=== PATIENT | female | born 1995 | race Caucasian/White ===

== ENCOUNTER 2018-11-10 19:26 | Observation (INO) ==
[2018-11-10] MEDS ORDERED: SODIUM CHLORIDE 0.9% 500 ML IV SCH (19:45)
[2018-11-10 19:46] LABS: Basophils # (auto) 0.01 K/uL (0-0.2); Basophils % (auto) 0.2 %; Eosinophils # (auto) 0.06 K/uL (0-0.5); Eosinophils % (auto) 1.1 %; Hematocrit (blood only) 37.2 % (37-47); Immature Granulocytes # (auto) 0.01 K/uL (0.00-0.02); Immature Granulocytes % (auto) 0.2 %; Lymphocytes # (auto) 1.84 K/uL (1.2-3.4); Lymphocytes % (auto) 34.8 %; Mean Corpuscular Hemoglobin 31.8 pg (25-34); Mean Corpuscular Hgb Conc 34.9 g/dL (32-36); Mean Platelet Volume 9.5 fL (7.4-10.4); Monocytes # (auto) 0.49 K/uL (0.11-0.59); Monocytes % (auto) 9.3 %; Neutrophils # (auto) 2.88 K/uL (1.4-6.5); Neutrophils % (auto) 54.4 %; Platelet Count 258 K/uL (130-400); RDW Coefficient of Variation 13.2 % (11.5-14.5); Red Blood Count 4.09 M/uL (4.2-5.4); White Blood Count 5.29 K/uL (4.8-10.8)
[2018-11-10 20:04] LABS: Alanine Aminotransferase 21 U/L (12-78); Albumin Level 3.7 gm/dl (3.4-5.0); Aspartate Aminotransferase 19 U/L (15-37); Blood Urea Nitrogen 7 mg/dl (7-18); Carbon Dioxide 26 mmol/L (21-32); Chloride 109 mmol/L (98-107); Creatinine Clr Calc Pharmacy 128.1 ml/min; Est GFR (African American) > 150.0; Est GFR (Non-African American) 130.3; Glucose 81 mg/dl (70-99); Magnesium 2.1 mg/dl (1.8-2.4); Potassium 3.2 mmol/L (3.5-5.1); Sodium 142 mmol/L (136-145)
[2018-11-10 20:12] LABS: Acetaminophen < 2 ug/ml (10-30); Salicylate 3.1 mg/dl (2.8-20)
[2018-11-10 20:15] LABS: Albumin Globulin Ratio 1.1 (0.9-2); Alkaline Phosphatase 76 U/L (45-117); Bilirubin,Total 0.4 mg/dl (0.2-1); Creatine Kinase 131 U/L (26-192); Globulin 3.5 gm/dl (2.5-4.0); Thyroid Stimulating Hormone 0.591 uIu/ml (0.300-4.500); Total Protein 7.2 gm/dl (6.4-8.2)
--- NOTE | 2018-11-10 20:20 | CT Scan Report ---
HEAD CT NONCONTRAST CT DOSE: 537.48 mGy.cm HISTORY: Altered mental status. TECHNIQUE: Multiaxial CT images of the head were performed without the use of intravenous contrast. A utomated exposure control was utilized for this study. A dose lowering technique was utilized adheri ng to the principles of ALARA. Comparison: None. Findings: The paranasal sinuses and mastoid air cells are clear. The calvarium and skull base are int act. The ventricles and sulci are within normal limits. There is no mass, hematoma, midline shift, or acute infarct. Impression: No acute intracranial abnormality. Electronically signed by: Marques Julio M.D. 11/10/2018 8:19 PM
[2018-11-10 20:22] LABS: Pregnancy Test, Serum Negative (Negative)
[2018-11-10 20:59] LABS: Appearance Urine Clear (Clear); Bilirubin Urine Negative (Negative); Blood Urine Negative (Negative); Color Urine Yellow; Epithelial Cell Urine Auto >30 /lpf (0-5); Glucose Urine UA Negative (Negative); Ketones Urine Negative (Negative); Leukocyte Esterase Urine Trace (Negative); Nitrite Urine Negative (Negative); Protein Urine 1+ (Negative); RBC Urine Automated 0-4 /hpf (0-4); Specific Gravity Urine 1.013 (1.000-1.030); Urobilinogen Urine Positive (Negative); pH Urine 6.5 (4.5-7.5)
[2018-11-10 21:13] LABS: Bacteria Urine Automated 1+ (Negative)
[2018-11-10 21:34] LABS: Amphetamines+Metham, Urine Pos (Neg); Barbiturates, Urine Neg (Neg); Benzodiazepine, Urine Pos (Neg); Cocaine, Urine Pos (Neg); MDMA (Ecstacy), Urine Neg (Neg); Methadone, Urine Neg (Neg); Opiate, Urine Neg (Neg); Phencyclidine, Urine Neg (Neg)
[2018-11-11] MEDS ORDERED: ALUMINUM/MAGNESIUM SUSP 30 ML UDC PO PRN (00:12)
[2018-11-11] MEDS ORDERED: ONDANSETRON INJ 2 MG/ML 2 ML VIAL IV PRN (00:12)
[2018-11-11] MEDS ORDERED: ACETAMINOPHEN 325 MG TAB PO PRN (00:12)
[2018-11-11] MEDS ORDERED: MAGNESIUM HYDROXIDE SUSP 30 ML UDC PO PRN (00:12)
[2018-11-11] MEDS: NSS + 20MEQ KCL 20 MEQ/1,000 ML BAG IV SCH ×3 (00:46→10:18)
--- NOTE | 2018-11-11 01:14 | Emergency Department Note ---
Entered by Kim Hargrove acting as a scribe for Barry Cook M.D. History of Present Illness General Chief complaint: Overdose (Intentional) Stated complaint: OVERDOSE Source: patient, family and EMS Mode of arrival: EMS Limitations: intoxication History of Present Illness Onset (ago): hour(s) 1 Location: head Radiation: non-radiation Pain Consistency: + constant Relieved By: + none Exacerbated By: + none Associated symptoms: + denies other symptoms Treatments prior to arrival: other (Xanax, Narcan) The patient is a 23 year old female with a PMHX of methamphetamine abuse who presents to the ED with complaints of a drug overdose. She was brought to the ED via EMS. EMS states she was on her way to rehab today when she passed out in a bathroom at a rest stop. EMS states She admits to taking 7 extra Xanax bars today. She also has a history of alcohol and methamphetamine use. She was given 4 mg of nasal Narcan before EMS arrived. She denies using any other drugs today. She denies trying to injure herself today by taking extra Xanax. She denies any pain at today's visit. Home Medications Home Medications Medication Instructions Recorded Confirmed Type No Known Home Medications 11/10/18 11/10/18 History Allergies Allergy/AdvReac Type Severity Reaction Status Date / Time No Known Allergies Allergy Verified 11/10/18 22:25 Past Med/Surg History Medical History History of drug dependence/abuse Depression Social History Feels Safe at Home: Yes Smoking Status: Current every day smoker Review of Systems See HPI for pertinent positives & negatives. and A total of 10 systems reviewed and were otherwise negative Physical Exam Vital Signs Vital Signs - 24 hr 11/10/18 19:32 11/10/18 19:36 11/10/18 19:40 Temperature 36.7 C Temperature Source Oral Sepsis Recent Fever Within 48 Hours No Sepsis Action Taken by Nursing No Action Required Pulse Rate 73 70 71 Pulse Rate [Finger] Pulse Rate from SpO2 Sensor 73 70 71 Respiratory Rate 16 Respiratory Effort / Characteristics Respiratory Depth Blood Pressure 105/75 105/75 Blood Pressure [Right Arm] Blood Pressure Mean 85 85 Blood Pressure Mean [Right Arm] Blood Pressure Position [Right Arm] Pulse Oximetry 98 98 96 Oxygen Delivery Method Room Air 11/10/18 19:50 11/10/18 20:00 11/10/18 20:15 Temperature Temperature Source Sepsis Recent Fever Within 48 Hours Sepsis Action Taken by Nursing Pulse Rate 78 72 71 Pulse Rate [Finger] 71 Pulse Rate from SpO2 Sensor 75 72 71 Respiratory Rate 18 Respiratory Effort / Characteristics Non-Labored Spontaneous Respiratory Depth Normal Blood Pressure 114/84 112/85 Blood Pressure [Right Arm] 112/85 Blood Pressure Mean 94 94 Blood Pressure Mean [Right Arm] 94 Blood Pressure Position [Right Arm] Lying Pulse Oximetry 98 96 97 Oxygen Delivery Method Room Air 11/10/18 20:16 11/10/18 20:20 11/10/18 20:30 Temperature Temperature Source Sepsis Recent Fever Within 48 Hours Sepsis Action Taken by Nursing Pulse Rate 69 70 71 Pulse Rate [Finger] Pulse Rate from SpO2 Sensor 70 70 72 Respiratory Rate 19 16 17 Respiratory Effort / Characteristics Respiratory Depth Blood Pressure 116/86 Blood Pressure [Right Arm] Blood Pressure Mean 96 Blood Pressure Mean [Right Arm] Blood Pressure Position [Right Arm] Pulse Oximetry 96 97 96 Oxygen Delivery Method 11/10/18 20:40 11/10/18 20:50 11/10/18 21:00 Temperature Temperature Source Sepsis Recent Fever Within 48 Hours Sepsis Action Taken by Nursing Pulse Rate 68 71 73 Pulse Rate [Finger] Pulse Rate from SpO2 Sensor 69 72 73 Respiratory Rate 17 16 18 Respiratory Effort / Characteristics Respiratory Depth Blood Pressure 116/90 Blood Pressure [Right Arm] Blood Pressure Mean 98 Blood Pressure Mean [Right Arm] Blood Pressure Position [Right Arm] Pulse Oximetry 97 98 96 Oxygen Delivery Method 11/10/18 21:03 11/10/18 21:10 11/10/18 21:20 Temperature Temperature Source Sepsis Recent Fever Within 48 Hours Sepsis Action Taken by Nursing Pulse Rate 73 74 Pulse Rate [Finger] 73 Pulse Rate from SpO2 Sensor 74 73 Respiratory Rate 16 17 18 Respiratory Effort / Characteristics Non-Labored Spontaneous Respiratory Depth Normal Blood Pressure Blood Pressure [Right Arm] 116/90 Blood Pressure Mean Blood Pressure Mean [Right Arm] 98 Blood Pressure Position [Right Arm] Pulse Oximetry 96 96 96 Oxygen Delivery Method Room Air 11/10/18 21:31 11/10/18 21:33 11/10/18 21:40 Temperature Temperature Source Sepsis Recent Fever Within 48 Hours Sepsis Action Taken by Nursing Pulse Rate 65 71 71 Pulse Rate [Finger] 71 Pulse Rate from SpO2 Sensor 65 70 71 Respiratory Rate 17 17 18 Respiratory Effort / Characteristics Non-Labored Spontaneous Respiratory Depth Normal Blood Pressure 117/85 Blood Pressure [Right Arm] 117/85 Blood Pressure Mean 95 Blood Pressure Mean [Right Arm] 95 Blood Pressure Position [Right Arm] Pulse Oximetry 97 97 96 Oxygen Delivery Method Room Air 11/10/18 21:50 Temperature Temperature Source Sepsis Recent Fever Within 48 Hours Sepsis Action Taken by Nursing Pulse Rate 72 Pulse Rate [Finger] Pulse Rate from SpO2 Sensor 73 Respiratory Rate 18 Respiratory Effort / Characteristics Respiratory Depth Blood Pressure Blood Pressure [Right Arm] Blood Pressure Mean Blood Pressure Mean [Right Arm] Blood Pressure Position [Right Arm] Pulse Oximetry 96 Oxygen Delivery Method GENERAL: Patient is awake, groggy to loud verbal stimuli HENT: Normocephalic, atraumatic. EYES: Normal conjunctiva. Sclera non-icteric. Pupils are 6 mm and reactive to light. NECK: Supple. No nuchal rigidity. RESPIRATORY: Clear to auscultation. No wheezes. Normal respiratory effort. CARDIAC: Normal rate. Normal rhythm. Extremities warm and well perfused. GI: Soft, non-distended. No tenderness to palpation. RECTAL: Deferred. MUSCULOSKELETAL: Atraumatic. Chest examination reveals no tenderness. There is no CVA tenderness to palpation. LOWER EXTREMITIES: Calves are equal size bilaterally and non-tender. No edema NEURO: Normal sensorium. Patient opens eyes to verbal commands, no slurred speech, slightly slow to answer questions, no clonus. SKIN: Warm and dry. No rash or jaundice noted. Course 1926: The patient was evaluated in room B1 and a complete history and physical were performed. 1949: I spoke to the patients Mother. Mother states they are from [place] on way to rehab in [facility]. Daughter took maybe 8 Xanax and some alcohol today. She became unresponsive in the car, so Mom called the police. She reports the daughter has a history of mental health issues as well as drug and alcohol abuse and does not take her prescription medications. 2113: I discussed the patients case with [facility] Control. They recommend observation until the patient is no longer drowsy. 2129: I updated the patient. She is still groggy. I will speak with the hospital medicine team. 2232: [facility] The patient will be further evaluated. Consultations Consultation #1: I discussed the patients case with [place] [facility]. They recommend observation until the patient is no longer drowsy. Time: 21:14 Consultation #2: I discussed the patients [facility] The patient will be further evaluated. Time: 22:33 Administered Medications Potassium Chloride/Sodium Chloride (Normal Saline W/20 Meq Kcl) 20 meq in 1,000 mls @ 200 mls/hr IV .Q5H VAL Stop: 12/11/18 00:11 Last Admin: 11/11/18 00:46 Dose: 200 mls/hr Documented by: [id number] Discontinued Medications Sodium Chloride (Nss) 500 mls @ 999 mls/hr IV .Q31M VAL Stop: 11/10/18 20:15 Last Infusion: 11/10/18 20:35 Dose: 0 mls/hr Documented by: [id number] Admin: 11/10/18 20:03 Dose: 999 mls/hr Documented by: [id number] Medical Decision Making Differential Diagnosis Differential diagnosis: Etiologies such as toxicologic, infection, hypoglycemia, electrolyte abnormalities, cardiac sources, intracerebral event, neurologic, as well as others were entertained. Medical Records Attestation: I reviewed the patient's medical records. Home Medications Current Medication List: was personally reviewed by me Laboratory Data Attestation: I reviewed the patient's lab results. Result diagrams: 11/10/18 19:20 11/10/18 19:20 Lab Results 11/10/18 11/10/18 11/10/18 Range/Units 19:20 19:20 19:20 WBC 5.29 (4.8-10.8) K/uL RBC 4.09 L (4.2-5.4) M/uL Hgb 13.0 (12.0-16.0) g/dL Hct 37.2 (37-47) % MCV 91.0 (80-100) fL MCH 31.8 (25-34) pg MCHC 34.9 (32-36) g/dL RDW Std Deviation 44.0 (36.4-46.3) fL RDW Coeff of Brandy 13.2 (11.5-14.5) % Plt Count 258 (130-400) K/uL MPV 9.5 (7.4-10.4) fL Immature Gran % (Auto) 0.2 % Neut % (Auto) 54.4 % Lymph % (Auto) 34.8 % [place] % (Auto) 9.3 % Eos % (Auto) 1.1 % Baso % (Auto) 0.2 % Immature Gran # (Auto) 0.01 (0.00-0.02) K/uL Neut # (Auto) 2.88 (1.4-6.5) K/uL Lymph # (Auto) 1.84 (1.2-3.4) K/uL [place] # (Auto) 0.49 (0.11-0.59) K/uL Eos # (Auto) 0.06 (0-0.5) K/uL Baso # (Auto) 0.01 (0-0.2) K/uL Sodium 142 (136-145) mmol/L Potassium 3.2 L (3.5-5.1) mmol/L Chloride 109 H (98-107) mmol/L Carbon Dioxide 26 (21-32) mmol/L Anion Gap 7.0 (3-11) BUN 7 (7-18) mg/dl Creatinine 0.60 (0.6-1.2) mg/dl Est Cr Clr Drug Dosing 128.1 ml/min Est GFR ( Amer) > 150.0 Est GFR (Non-Af Amer) 130.3 BUN/Creatinine Ratio 11.0 (10-20) Glucose 81 (70-99) mg/dl Calcium 9.0 (8.5-10.1) mg/dl Magnesium 2.1 (1.8-2.4) mg/dl Total Bilirubin 0.4 (0.2-1) mg/dl AST 19 (15-37) U/L ALT 21 (12-78) U/L Alkaline Phosphatase 76 (45-117) U/L Total Creatine Kinase 131 (26-192) U/L Total Protein 7.2 (6.4-8.2) gm/dl Albumin 3.7 (3.4-5.0) gm/dl Globulin 3.5 (2.5-4.0) gm/dl Albumin/Globulin Ratio 1.1 (0.9-2) TSH 0.591 (0.300-4.500) uIu/ml HCG, Qual (Negative) Urine Color Urine Appearance (Clear) Urine pH (4.5-7.5) Ur Specific [place] (1.000-1.030) Urine Protein (Negative) Urine Glucose (UA) (Negative) Urine Ketones (Negative) Urine Blood (Negative) Urine Nitrite (Negative) Urine Bilirubin (Negative) Urine Urobilinogen (Negative) Ur Leukocyte Esterase (Negative) Urine WBC (Auto) (0-5) /hpf Urine RBC (Auto) (0-4) /hpf U Hyaline Cast (Auto) (0-5) /lpf U Epithel Cells (Auto) (0-5) /lpf Urine Bacteria (Auto) (Negative) Ur Renal Epithelial Cell Salicylates 3.1 (2.8-20) mg/dl Urine Opiates Screen (Neg) Ur Methadone, Qual (Neg) Acetaminophen < 2 L (10-30) ug/ml Urine Barbiturates (Neg) Ur Phencyclidine (PCP) (Neg) U Amphetamin/Meth Scrn (Neg) MDMA (Ecstasy) Screen (Neg) U Benzodiazepines Scrn (Neg) Ur Cocaine Metabolite (Neg) U Marijuana (THC) Screen (Neg) Ethyl Alcohol mg/dL (0-3) mg/dl 11/10/18 11/10/18 11/10/18 Range/Units 19:20 19:42 20:45 WBC (4.8-10.8) K/uL RBC (4.2-5.4) M/uL Hgb (12.0-16.0) g/dL Hct (37-47) % MCV (80-100) fL MCH (25-34) pg MCHC (32-36) g/dL RDW Std Deviation (36.4-46.3) fL RDW Coeff of Brandy (11.5-14.5) % Plt Count (130-400) K/uL MPV (7.4-10.4) fL Immature Gran % (Auto) % Neut % (Auto) % Lymph % (Auto) % [place] % (Auto) % Eos % (Auto) % Baso % (Auto) % Immature Gran # (Auto) (0.00-0.02) K/uL Neut # (Auto) (1.4-6.5) K/uL Lymph # (Auto) (1.2-3.4) K/uL [place] # (Auto) (0.11-0.59) K/uL Eos # (Auto) (0-0.5) K/uL Baso # (Auto) (0-0.2) K/uL Sodium (136-145) mmol/L Potassium (3.5-5.1) mmol/L Chloride (98-107) mmol/L Carbon Dioxide (21-32) mmol/L Anion Gap (3-11) BUN (7-18) mg/dl Creatinine (0.6-1.2) mg/dl Est Cr Clr Drug Dosing ml/min Est GFR ( Amer) Est GFR (Non-Af Amer) BUN/Creatinine Ratio (10-20) Glucose (70-99) mg/dl Calcium (8.5-10.1) mg/dl Magnesium (1.8-2.4) mg/dl Total Bilirubin (0.2-1) mg/dl AST (15-37) U/L ALT (12-78) U/L Alkaline Phosphatase (45-117) U/L Total Creatine Kinase (26-192) U/L Total Protein (6.4-8.2) gm/dl Albumin (3.4-5.0) gm/dl Globulin (2.5-4.0) gm/dl Albumin/Globulin Ratio (0.9-2) TSH (0.300-4.500) uIu/ml HCG, Qual Negative (Negative) Urine Color Urine Appearance (Clear) Urine pH (4.5-7.5) Ur Specific [place] (1.000-1.030) Urine Protein (Negative) Urine Glucose (UA) (Negative) Urine Ketones (Negative) Urine Blood (Negative) Urine Nitrite (Negative) Urine Bilirubin (Negative) Urine Urobilinogen (Negative) Ur Leukocyte Esterase (Negative) Urine WBC (Auto) (0-5) /hpf Urine RBC (Auto) (0-4) /hpf U Hyaline Cast (Auto) (0-5) /lpf U Epithel Cells (Auto) (0-5) /lpf Urine Bacteria (Auto) (Negative) Ur Renal Epithelial Cell Salicylates (2.8-20) mg/dl Urine Opiates Screen Neg (Neg) Ur Methadone, Qual Neg (Neg) Acetaminophen (10-30) ug/ml Urine Barbiturates Neg (Neg) Ur Phencyclidine (PCP) Neg (Neg) U Amphetamin/Meth Scrn Pos H (Neg) MDMA (Ecstasy) Screen Neg (Neg) U Benzodiazepines Scrn Pos H (Neg) Ur Cocaine Metabolite Pos H (Neg) U Marijuana (THC) Screen Pos H (Neg) Ethyl Alcohol mg/dL < 3.0 (0-3) mg/dl 11/10/18 Range/Units 20:45 WBC (4.8-10.8) K/uL RBC (4.2-5.4) M/uL Hgb (12.0-16.0) g/dL Hct (37-47) % MCV (80-100) fL MCH (25-34) pg MCHC (32-36) g/dL RDW Std Deviation (36.4-46.3) fL RDW Coeff of Brandy (11.5-14.5) % Plt Count (130-400) K/uL MPV (7.4-10.4) fL Immature Gran % (Auto) % Neut % (Auto) % Lymph % (Auto) % [place] % (Auto) % Eos % (Auto) % Baso % (Auto) % Immature Gran # (Auto) (0.00-0.02) K/uL Neut # (Auto) (1.4-6.5) K/uL Lymph # (Auto) (1.2-3.4) K/uL [place] # (Auto) (0.11-0.59) K/uL Eos # (Auto) (0-0.5) K/uL Baso # (Auto) (0-0.2) K/uL Sodium (136-145) mmol/L Potassium (3.5-5.1) mmol/L Chloride (98-107) mmol/L Carbon Dioxide (21-32) mmol/L Anion Gap (3-11) BUN (7-18) mg/dl Creatinine (0.6-1.2) mg/dl Est Cr Clr Drug Dosing ml/min Est GFR ( Amer) Est GFR (Non-Af Amer) BUN/Creatinine Ratio (10-20) Glucose (70-99) mg/dl Calcium (8.5-10.1) mg/dl Magnesium (1.8-2.4) mg/dl Total Bilirubin (0.2-1) mg/dl AST (15-37) U/L ALT (12-78) U/L Alkaline Phosphatase (45-117) U/L Total Creatine Kinase (26-192) U/L Total Protein (6.4-8.2) gm/dl Albumin (3.4-5.0) gm/dl Globulin (2.5-4.0) gm/dl Albumin/Globulin Ratio (0.9-2) TSH (0.300-4.500) uIu/ml HCG, Qual (Negative) Urine Color Yellow Urine Appearance Clear (Clear) Urine pH 6.5 (4.5-7.5) Ur Specific [place] 1.013 (1.000-1.030) Urine Protein 1+ H (Negative) Urine Glucose (UA) Negative (Negative) Urine Ketones Negative (Negative) Urine Blood Negative (Negative) Urine Nitrite Negative (Negative) Urine Bilirubin Negative (Negative) Urine Urobilinogen Positive H (Negative) Ur Leukocyte Esterase Trace H (Negative) Urine WBC (Auto) 1-5 (0-5) /hpf Urine RBC (Auto) 0-4 (0-4) /hpf U Hyaline Cast (Auto) 5-10 H (0-5) /lpf U Epithel Cells (Auto) >30 H (0-5) /lpf Urine Bacteria (Auto) 1+ H (Negative) Ur Renal Epithelial Cell Not Reportable Salicylates (2.8-20) mg/dl Urine Opiates Screen (Neg) Ur Methadone, Qual (Neg) Acetaminophen (10-30) ug/ml Urine Barbiturates (Neg) Ur Phencyclidine (PCP) (Neg) U Amphetamin/Meth Scrn (Neg) MDMA (Ecstasy) Screen (Neg) U Benzodiazepines Scrn (Neg) Ur Cocaine Metabolite (Neg) U Marijuana (THC) Screen (Neg) Ethyl Alcohol mg/dL (0-3) mg/dl Imaging Data Radiologist's Impression: Radiology results as stated below per my review and the radiologist's interpretation: HEAD CT NONCONTRAST CT DOSE: 537.48 mGy.cm HISTORY: Altered mental status. TECHNIQUE: Multiaxial CT images of the head were performed without the use of intravenous contrast. Automated exposure control was utilized for this study. A dose lowering technique was utilized adhering to the principles of ALARA. Comparison: None. Findings: The paranasal sinuses and mastoid air cells are clear. The calvarium and skull base are intact. The ventricles and sulci are within normal limits. There is no mass, hematoma, midline shift, or acute infarct. Impression: No acute intracranial abnormality. Electronically signed by: Marques Julio M.D. 11/10/2018 8:19 PM Blood Pressure Blood Pressure Findings: Normal blood pressure Blood Pressure Disposition: did not require urgent referral MDM Narrative Patient is a 23-year-old female history of mental health issues and drug and alcohol abuse presenting today after overdosing. Evidently was with her mother in route to drug and rehab in the [facility] in the [facility] and she became unresponsive at sheets. Please were unable to arrive her and given Narcan without significant effect. EMS was called and brought here for further evaluation. Patient was groggy but answering questions upon arrival. Not been forthcoming with history initially. No evidence of her significant history of trauma reported. However given her altered status CT head was obtained. No acute findings here. Patient's vaguely reports she took some Xanax bars as well as alcohol today. Medical alcohol was sent as well as UDS and toxicological studies. Discussed with patient's mother is present states that the patient took up to 8 Xanax bars and some alcohol the way up before going to rehab. Also states that the patient reported to her earlier that she has been on a meth manrique for several days. Basic labs were obtained occluding toxicological studies. EKG without significant interval abnormalities. Slight hypokalemia is noted. CBC is otherwise unremarkable and renal function appears unremarkable. Patient still quite groggy. Discussed with poison control. They recommended observation until her mental status clears. Given that she has not had significant change person the several hours she is been here feel that further observation the hospital is warranted. Discussed with the hospitalist. There is no indication at this time that this was an attempt to harm herself based on current available information. Impression & Plan Benzodiazepine overdose, Altered mental status associated with intoxication Discharge Plan Visit Data *Final* Discharge Date/Time: 11/10/18 23:27 Chief Complaint: Overdose (Intentional) Stated Complaint: OVERDOSE ED Provider: Barry Cook Discharge Problem: Benzodiazepine overdose, Altered mental status associated with intoxication Patient Disposition: Admitted As Inpatient Discharge Instructions Interventions: ED Discharge Assessment Last Done: 11/10/18 23:27 Discharge Problem: Benzodiazepine overdose Qualifiers: Encounter type: initial encounter Injury intent: accidental or unintentional Qualified Code(s): T42.4X1A - Poisoning by benzodiazepines, accidental (unintentional), initial encounter The scribe's documentation has been prepared under my direction and personally reviewed by me in its entirety. I confirm that the note above accurately reflects all work, treatment, procedures, and medical decision making performed by me.
--- NOTE | 2018-11-11 02:26 | History & Physical Report ---
Date of Service November 11, 2018 The patient was seen and examined on November 10, 2018. Assessment & Plan (1) Benzodiazepine overdose: As noted, the patient reported taking an additional 7-8 bars of Xanax. She will be admitted to telemetry unit for close monitoring of vital signs overn ight. NSS + KCl 20 mEq at 200 mils per hour. The patient's mother will be staying overnight tonight in the patient's room. Present on Admission?: Yes (2) History of drug dependence/abuse: Patient with a history of known multidrug dependency and use and abuse, was in route to inpatient rehab in the [facility]. Plan is for the patient to be discharged in the care of her mother and the rehab facility. Present on Admission?: Yes (3) Multiple drug overdose: Urine drug screen positive for the following: Amphetamine, benzodiazepine, cocaine and marijuana. Present on Admission?: Yes (4) Altered mental status associated with intoxication: Patient with excessive sedation associated with benzodiazepine overdose Present on Admission?: Yes (5) Depression: History per mother. Unknown medication usage. Present on Admission?: Yes History of Present Illness Chief Complaint: The patient is brought to the emergency department due to conc erns of her mother regarding a drug overdose. Primary Care Provider: NO PCP Patient is a 23-year-old female with a past medical history including multidrug abuse, who was being transported by her mother to inpatient rehab in the [facility]. When they stopped at a local gas station, her mother found her passed out in the bathroom. She was arousable enough to tell her mother that she had taken 7 to 8 bars of Xanax. Mother then called emergency services, who brought the patient to the [facility] [place] ED. In route the patient did receive 4mg of nasal Narcan without significant effect. The patient was completely sedated during my assessment, and information gathered was from the emergency department records and from talking with the patient's mother, who was in the emergency department. Allergies Allergy/AdvReac Type Severity Reaction Status Date / Time No Known Allergies Allergy Verified 11/10/18 22:25 Home Medications Home Medications Medication Instructions Recorded Confirmed Type No Known Home Medications 11/10/18 11/10/18 History Past Med/Surg History Medical History History of drug dependence/abuse Depression Social History Preferred Language: Macedonian Communication Ability: Impaired Beliefs That Will Affect Care: None Current Living Situation: Other Current Living Situation Comment: friends apartment Other Information That Helps Us Care for You: No Feels Safe at Home: Yes Smoking Status: Current every day smoker Tobacco Type: cigarettes ; Tobacco Cessation Education Requested by Patient: No Hx Alcohol Use: Yes Hx Substance Use: Yes substance use type: crack/cocaine, tranquilizers and methamphetamine Last Used Substance: Hours (ago) Last Used Substance Other:: per mother meth, cocaine and xanax Review of Systems Review of Systems: Unobtainable due to reduced consciousness Physical Exam Physical Exam: The patient is sedated, normocephalic and atraumatic, lying in bed and in no acute distress. HEENT--PERRL, EOMI, mucous membranes and oropharynx dry. Neck--supple. No JVD. No bruits. Thyroid normal, trachea midline, no adenopathy. Heart--normal S1 and S2. No murmurs, rubs or gallops. Lungs--clear bilaterally, no respiratory distress, no accessory muscle use. Abdomen--normal bowel sounds and soft. Nontender. Nondistended. Extremities--no cyanosis or clubbing. No edema. There are good distal pulses b/l. Dermatologic--normal skin turgor, normal color, no abnormal lymph nodes, no rash. Neurologic--cranial nerves II through XII grossly intact. Rheumatologic--normal range of motion. Psychiatric--normal affect. Results & Data Vital Signs (Past 12 Hours) Vital Signs Temp Pulse Pulse Resp BP BP Pulse Ox 11/11/18 01:07 97.7 F 76 18 108/66 11/11/18 00:25 67 11/10/18 23:26 69 14 116/63 96 11/10/18 21:50 72 18 96 11/10/18 21:40 71 18 96 11/10/18 21:33 71 71 17 117/85 117/85 97 11/10/18 21:31 65 17 97 11/10/18 21:20 74 18 96 11/10/18 21:10 73 17 96 11/10/18 21:03 73 16 116/90 96 11/10/18 21:00 73 18 116/90 96 11/10/18 20:50 71 16 98 11/10/18 20:40 68 17 97 11/10/18 20:30 71 17 116/86 96 11/10/18 20:20 70 16 97 11/10/18 20:16 69 19 96 11/10/18 20:15 71 71 18 112/85 112/85 97 11/10/18 20:00 72 114/84 96 11/10/18 19:50 78 98 11/10/18 19:40 71 96 11/10/18 19:36 98.1 F 70 16 105/75 98 11/10/18 19:32 73 105/75 98 Laboratory Results Laboratory Results WBC 5.29 K/uL (4.8-10.8) 11/10/18 19:20 RBC 4.09 M/uL (4.2-5.4) L 11/10/18 19:20 Hgb 13.0 g/dL (12.0-16.0) 11/10/18 19:20 Hct 37.2 % (37-47) 11/10/18 19:20 MCV 91.0 fL (80-100) 11/10/18 19:20 MCH 31.8 pg (25-34) 11/10/18 19:20 MCHC 34.9 g/dL (32-36) 11/10/18 19:20 RDW Std Deviation 44.0 fL (36.4-46.3) 11/10/18 19:20 RDW Coeff of Branyd 13.2 % (11.5-14.5) 11/10/18 19:20 Plt Count 258 K/uL (130-400) 11/10/18 19:20 MPV 9.5 fL (7.4-10.4) 11/10/18 19:20 Immature Gran % (Auto) 0.2 % 11/10/18 19:20 Neut % (Auto) 54.4 % 11/10/18 19:20 Lymph % (Auto) 34.8 % 11/10/18 19:20 Hickman % (Auto) 9.3 % 11/10/18 19:20 Eos % (Auto) 1.1 % 11/10/18 19:20 Baso % (Auto) 0.2 % 11/10/18 19:20 Immature Gran # (Auto) 0.01 K/uL (0.00-0.02) 11/10/18 19:20 Neut # (Auto) 2.88 K/uL (1.4-6.5) 11/10/18 19:20 Lymph # (Auto) 1.84 K/uL (1.2-3.4) 11/10/18 19:20 Hickman # (Auto) 0.49 K/uL (0.11-0.59) 11/10/18 19:20 Eos # (Auto) 0.06 K/uL (0-0.5) 11/10/18 19:20 Baso # (Auto) 0.01 K/uL (0-0.2) 11/10/18 19:20 Sodium 142 mmol/L (136-145) 11/10/18 19:20 Potassium 3.2 mmol/L (3.5-5.1) L 11/10/18 19:20 Chloride 109 mmol/L (98-107) H 11/10/18 19:20 Carbon Dioxide 26 mmol/L (21-32) 11/10/18 19:20 Anion Gap 7.0 (3-11) 11/10/18 19:20 BUN 7 mg/dl (7-18) 11/10/18 19:20 Creatinine 0.60 mg/dl (0.6-1.2) 11/10/18 19:20 Est Cr Clr Drug Dosing 128.1 ml/min 11/10/18 19:20 Est GFR ( Amer) > 150.0 11/10/18 19:20 Est GFR (Non-Af Amer) 130.3 11/10/18 19:20 BUN/Creatinine Ratio 11.0 (10-20) 11/10/18 19:20 Glucose 81 mg/dl (70-99) 11/10/18 19:20 Calcium 9.0 mg/dl (8.5-10.1) 11/10/18 19:20 Magnesium 2.1 mg/dl (1.8-2.4) 11/10/18 19:20 Total Bilirubin 0.4 mg/dl (0.2-1) 11/10/18 19:20 AST 19 U/L (15-37) 11/10/18 19:20 ALT 21 U/L (12-78) 11/10/18 19:20 Alkaline Phosphatase 76 U/L (45-117) 11/10/18 19:20 Total Creatine Kinase 131 U/L (26-192) 11/10/18 19:20 Total Protein 7.2 gm/dl (6.4-8.2) 11/10/18 19:20 Albumin 3.7 gm/dl (3.4-5.0) 11/10/18 19:20 Globulin 3.5 gm/dl (2.5-4.0) 11/10/18 19:20 Albumin/Globulin Ratio 1.1 (0.9-2) 11/10/18 19:20 TSH 0.591 uIu/ml (0.300-4.500) 11/10/18 19:20 HCG, Qual Negative (Negative) 11/10/18 19:20 Urine Color Yellow 11/10/18 20:45 Urine Appearance Clear (Clear) 11/10/18 20:45 Urine pH 6.5 (4.5-7.5) 11/10/18 20:45 Ur Specific Iaeger 1.013 (1.000-1.030) 11/10/18 20:45 Urine Protein 1+ (Negative) H 11/10/18 20:45 Urine Glucose (UA) Negative (Negative) 11/10/18 20:45 Urine Ketones Negative (Negative) 11/10/18 20:45 Urine Blood Negative (Negative) 11/10/18 20:45 Urine Nitrite Negative (Negative) 11/10/18 20:45 Urine Bilirubin Negative (Negative) 11/10/18 20:45 Urine Urobilinogen Positive (Negative) H 11/10/18 20:45 Ur Leukocyte Esterase Trace (Negative) H 11/10/18 20:45 Urine WBC (Auto) 1-5 /hpf (0-5) 11/10/18 20:45 Urine RBC (Auto) 0-4 /hpf (0-4) 11/10/18 20:45 U Hyaline Cast (Auto) 5-10 /lpf (0-5) H 11/10/18 20:45 U Epithel Cells (Auto) >30 /lpf (0-5) H 11/10/18 20:45 Urine Bacteria (Auto) 1+ (Negative) H 11/10/18 20:45 Ur Renal Epithelial Cell Not Reportable 11/10/18 20:45 Salicylates 3.1 mg/dl (2.8-20) 11/10/18 19:20 Urine Opiates Screen Neg (Neg) 11/10/18 20:45 Ur Methadone, Qual Neg (Neg) 11/10/18 20:45 Acetaminophen < 2 ug/ml (10-30) L 11/10/18 19:20 Urine Barbiturates Neg (Neg) 11/10/18 20:45 Ur Phencyclidine (PCP) Neg (Neg) 11/10/18 20:45 U Amphetamin/Meth Scrn Pos (Neg) H 11/10/18 20:45 MDMA (Ecstasy) Screen Neg (Neg) 11/10/18 20:45 U Benzodiazepines Scrn Pos (Neg) H 11/10/18 20:45 Ur Cocaine Metabolite Pos (Neg) H 11/10/18 20:45 U Marijuana (THC) Screen Pos (Neg) H 11/10/18 20:45 Ethyl Alcohol mg/dL < 3.0 mg/dl (0-3) 11/10/18 19:42 Diagnostic Findings [place], [place] [phone] CT Scan Report Patient: Yoanna MURILLO Date: 11/10/18 MR#: [id number]: Acct ID:[id number]: Date: 1995[facility] Zip: Age: 23Location: ED Sex: F Room/Bed: Att Phy:Diagnosis: OVERDOSE Zoraida Phy: PCP,NOService Date: 11/10/18 Fam Phy:Interpreting Phy: Marques Julio MD Admit Phy: Ordering Phy: Barry Cook M.D. cc: ~ HEAD CT NONCONTRAST CT DOSE: 537.48 mGy.cm HISTORY: Altered mental status. TECHNIQUE: Multiaxial CT images of the head were performed without the use of intravenous contrast. Automated exposure control was utilized for this study. A dose lowering technique was utilized adhering to the principles of ALARA. Comparison: None. Findings: The paranasal sinuses and mastoid air cells are clear. The calvarium and skull base are intact. The ventricles and sulci are within normal limits. There is no mass, hematoma, midline shift, or acute infarct. Impression: No acute intracranial abnormality. Electronically signed by: Marques Julio M.D. 11/10/2018 8:19 PM Dictated: 11/10/182013 Transcribed: 11/10/182017 Code Status & VTE Plan Code Status Full code VTE Prophylaxis Plan VTE Prophylaxis will be ordered: Yes PG Care Time/CCT Total # of Minutes Spent Total Time Spent with Patient: Total time spent is greater than 50% in coordination of care (as documented) at patient's floor/unit and/or counseling patient: (1) Benzodiazepine overdose Encounter type: initial encounter Injury intent: accidental or unintentional Qualified Code(s): T42.4X1A - Poisoning by benzodiazepines, accidental (unintentional), initial encounter
--- NOTE | 2018-11-11 15:31 | Discharge Summary ---
Date of Service November 11, 2018 Admission HPI Per Admitting Provider Patient is a 23-year-old female with a past medical history including multidrug abuse, who was being transported by her mother to inpatient rehab in the [facility]. When they stopped at a local gas station, her mother found her passed out in the bathroom. She was arousable enough to tell her mother that she had taken 7 to 8 bars of Xanax. Mother then called emergency services, who brought the patient to the [facility] ED. In route the patient did receive 4mg of nasal Narcan without significant effect. The patient was completely sedated during my assessment, and information gathered was from the emergency department records and from talking with the patient's mother, who was in the emergency department. Principal Diagnosis Xanax overdose Discharge Exam Constitutional WD/WN, vitals as above Eyes EOM intact bilaterally; no conjunctival abnormality ENMT external ear and nose normal, oropharynx normal Neck trachea midline, no thyromegaly normal visual inspection Respiratory normal respiratory effort, lungs clear to auscultation no respiratory distress Cardiovascular RRR, no murmur, no edema Gastrointestinal (Abdomen) Inspection/Auscultation: abdomen normal to inspection; abdomen not distended Musculoskeletal no cyanosis or clubbing, extremities motor strength 5/5 Skin no rashes, warm and dry Neurologic moves all extremities and awake Psychiatric Orientation: alert, oriented to person and cooperative Discharge Data Allergies Allergy/AdvReac Type Severity Reaction Status Date / Time No Known Allergies Allergy Verified 11/10/18 22:25 Consultations 11/10/18 22:33 ED Decision to Admit Stat 11/11/18 00:12 Consult Case Management - Discharge Planning Routine Ordered Studies 11/10/18 19:50 CT head/brain wo con Stat Hospital Course (1) Benzodiazepine overdose: Over the course of overnight in the morning, she returned to her baseline mental status. She unequivocally stated to me that this had not been an attempt at suicide or self-harm. She denied any SI/HI. She denied any passive wish. She reported that her mood was "shitty", but that she did not want to harm her self. She was discharged to inpatient rehab and can follow-up with her medical providers outpatient. (2) History of drug dependence/abuse: Patient with a history of known multidrug dependency and use and abuse, was in route to inpatient rehab in the [facility]. Plan is for the patient to be discharged in the care of her mother and the rehab facility. (3) Multiple drug overdose: Urine drug screen positive for the following: Amphetamine, benzodiazepine, cocaine and marijuana. (4) Altered mental status associated with intoxication: Patient with excessive sedation associated with benzodiazepine overdose (5) Depression: History per mother. Unknown medication usage. Total Time Total Time Spent Total Time Spent (In Minutes): 25 Discharge Plan Discharge Items Patient Disposition: Drug & Alcohol Rehab Reason For Visit: MULTI-DRUG OVERDOSE Discharge Diagnosis: Xanax overdose Activity: Resume your previous activity Non-emergency contact: Primary Care Provider Call non-emergency contact if: your symptoms worsen Follow-up/Referrals: PCP,NO [Primary Care Provider] - Diet: Regular Addtl Attending Provider Instructions: Please attend rehab and do not drink alcohol or take drugs. Pending Studies at Discharge: No Stand-Alone Forms: [facility] [employer] Skilled Items Patient informed of condition?: Yes DNR: No Discharge Level of Care: Other Communicable Disease: No Discharge Prognosis: Stable Lines: None Urinary Catheter: No Medications and DC Order Prescriptions: Continued No Known Home Medications RF: 0 Admission Data Admit Date/Time: 11/10/18 22:55 Attending Provider: Sonu Medeiros Admit Provider: Rad Lawson Primary Care Provider: PCP,NO Other Providers: Sonu Medeiros. Other Interventions: Discharge Summary Assessment (RN) Last Done: 11/11/18 13:25 DC Date/Time DO NOT enter until pt leaves facility: 11/11/18 15:20
[2018-11-14 14:42] LABS: 7-Aminoclonaz, Confirm NEGATIVE NG/ML (CUTOFF=25); Amphetamine Urine, Confirm 752 NG/ML (CUTOFF=250); Cocaine, Urine 1440 NG/ML (CUTOFF=100); Hydro-Alp Ur, GC/MS 169 NG/ML (CUTOFF=25); Hydroxyethylflurazepam, Conf NEGATIVE NG/ML (CUTOFF=50); Hydroxytriazolam NEGATIVE NG/ML (CUTOFF=50); Lorazepam, Ur GC/MS NEGATIVE NG/ML (CUTOFF=50); Marijuana Quant, GCMS Urine 182 NG/ML (CUTOFF=5); Methamphetamine, Ur Confirm 2110 NG/ML (CUTOFF=250); Nordiazepam, Confirm NEGATIVE NG/ML (CUTOFF=50); Oxazepam Ur, GC/MS NEGATIVE NG/ML (CUTOFF=50); Temazepam, Confirm NEGATIVE NG/ML (CUTOFF=50)
== END 2018-11-11 15:20 | disposition alcohol treatment (31) ==
LOC: 2N 19:26 → ED 19:26 → SUATTDRO 22:55 → 2N 23:27